=== PATIENT | male | born 1985 | race Two or more races ===

== ENCOUNTER 2024-11-18 08:33 | Outpatient (CLI) | payer OTHER ==
--- NOTE | 2024-11-18 10:13 | DVH ---
CT MAXILLOFACIAL WITHOUT INDICATION: BILATERAL PERFORATIONS EXAM DATE: 11/18/2024 08:45 AM COMPARISON: None RADIATION DOSE: CTDIvol: 1300.97 mGy, DLP: 1297.4 mGy*cm PROCEDURE: Using the CT scanner, contiguous noncontrast scans were obtained from above the orbital ri ms to below the mandible. Coronal and sagittal reformatted images were then generated. All CT scans at this medical facility are performed using dose modulation techniques as appropriate t o a performed exam including the following: Automated exposure control was utilized; adjustment of th e MA and/or KV according to patient size; and use of iterative reconstruction technique. FINDINGS: The facial bones, including the orbits and paranasal sinuses are intact without evidence of fracture. The paranasal sinuses, mastoid air cells and middle ear cavities are normally aerated. The orbital contents are normal. The soft tissues of the face are unremarkable. IMPRESSION: Unremarkable CT findings of the maxillofacial region.
== END 2024-11-18 17:00 | disposition home or self-care (01) ==
LOC: CT 08:33
DX: H72.93 Unspecified perforation of tympanic membrane, bilateral (principal); H91.90 Unspecified hearing loss, unspecified ear; K08.3 Retained dental root; M54.50 Low back pain, unspecified; M25.50 Pain in unspecified joint; R03.0 Elevated blood-pressure reading, without diagnosis of hypertension; L30.9 Dermatitis, unspecified
CPT/HCPCS: 70486